=== PATIENT | male | born 1985 | race Caucasian/White ===

== ENCOUNTER 2019-06-19 11:20 | Emergency (ER) | payer BC, SELFPAY ==
[2019-06-19 11:25] VITALS: BP 131/77; PULSE 84; RESP 16; TEMP 36.3; O2SAT 98
--- NOTE | 2019-06-19 11:37 | ED.GENADUL_ITS ---
Discharge Plan Disposition Patient Disposition: HOME Condition: Stable Discharge Details Chief Complaint: RespSymp Clinical Impression: Upper respiratory infection Primary Care Provider: Irina,Local ED Provider: Carmela Lozada Home Meds and New Rx's Prescriptions: New benzonatate 100 mg capsule 100 mg PO BID-TID PRN (Reason: cough) Qty: 14 RF: 0 albuterol sulfate [ProAir HFA] 90 mcg/actuation HFA aerosol inhaler 2 puff IH QID PRN (Reason: shortness of breath or wheezing) Qty: 6.7 RF: 0 prednisone 20 mg tablet 60 mg PO DAILY 5 Days Qty: 15 RF: 0 Continued escitalopram oxalate [Lexapro] 20 mg Tablet 20 mg PO DAILY RF: 0 Discharge Instructions Instructions: Upper Respiratory Infection (ED) Additional Instructions: Follow up with primary care provider in 3-5 days. Return to ED sooner if any worsening or concerns. Increase oral fluids. May take ibuprofen every 4-6 hours as needed for pain. Take medications as directed. Stand Alone Forms: School Release, Work Release Medical Decision Making 1149: 33-year-old male presents with productive cough and intermittent fever. Chest x-ray ordered, and influenza swab. 1230: Spoke with Dr. Regalado radiologist regarding patient's chest x-ray. There is some abnormal right hilar markings and he suggests a chest CT to further evaluate. EXAM: XR CHEST 2V PA LATERAL CLINICAL HISTORY: Productive cough TECHNIQUE: COMPARISON: No exams were available for comparison FINDINGS: Heart is not enlarged. There is slight elevation the diaphragm on the right. No prior films available for comparison. Right hilum is mildly prominent and slightly lobular in appearance comparison with the left. Possibility of a hilar mass or adenopathy not excluded. Lungs appear generally clear. No pleural effusion seen. IMPRESSION: Question right hilar prominence, chest CT should be considered to evaluate the possibility of adenopathy or mass. Ordered By: Carmela Lozada CC: EXAM: CT CHEST PE CTA CLINICAL HISTORY: Productive cough, hemoptysis TECHNIQUE: COMPARISON: No exams were available for comparison FINDINGS: CT angiography of the chest was performed bolus infusion 100 cc of Omnipaque 350. Images obtained through the upper abdomen show unremarkable appearance of visualized portions of liver spleen pancreas adrenals and kidneys. No mediastinal or hilar mass or adenopathy.. Tracheobronchial tree appears intact. . No evidence of pulmonary embolic disease. Thoracic aorta and major branches appear intact. Lungs are clear although hypoinflated. No pleural effusion or pneumothorax. IMPRESSION: Negative CT angiography of the chest. No hilar mass or adenopathy. [id number]: Total DLP = 0.00 mGy-cm Ordered By: Carmela Lozada CC: [id number]: Spoke with Dr. Nieves with radiology regarding CT results. CT result is negative for PE or infiltrate. Will discharge patient with diagnosis of URI. Discussed home care and medications with patient. Placed on care management list for PCP follow-up. HPI General Date/Time Provider Initiated Documentation: 06/19/19 11:31 . Limitations to Documentation: no limitations . Information obtained by: patient . HPI Narrative: 33-year-old male presents with productive cough for the last 2 to 3 days. Also subjective fever T-max 101. Reports productive sputum green-yellow and in the last hour and a half reports some spots of bright red blood. Associated symptoms include sinus pressure, hoarse voice and fatigue. Denies chest pain, nausea vomiting or diarrhea. Related Data Home Medications Medication Instructions Recorded Confirmed albuterol sulfate [ProAir HFA] 2 puff IH QID PRN #6.7 gm 06/19/19 benzonatate 100 mg PO BID-TID PRN #14 cap 06/19/19 escitalopram oxalate [Lexapro] 20 mg PO DAILY 06/19/19 06/19/19 prednisone 60 mg PO DAILY 5 Days #15 tab 06/19/19 Previous Rx's Medication Instructions Recorded albuterol sulfate [ProAir HFA] 2 puff IH QID PRN #6.7 gm 06/19/19 benzonatate 100 mg PO BID-TID PRN #14 cap 06/19/19 prednisone 60 mg PO DAILY 5 Days #15 tab 06/19/19 Allergies Allergy/AdvReac Type Severity Reaction Status Date / Time morphine Allergy Severe Anaphylaxsi Unverified 06/19/19 11:29 s General Stated Complaint: RespSymp SEGUNDO: 3 Review of Systems Narrative: Constitutional: Negative for weight loss, alert and oriented, well groomed, normal body habitus, appears comfortable. HEENT: Denies trauma, headaches, trouble swallowing. POsitive cough, hoarse voice. Chest: Denies chest pain, palpitations, irregular rhythm, hypertension. Respiratory: Denies Shortness of breath. GI: Denies abdominal pain, nausea, vomiting, diarrhea, constipation. : Denies dysuria, hematuria, flank pain, vaginal bleeding, rectal bleeding. Neuro: Denies dizziness, blurry vision, weakness, syncope, headache or facial numbness. Hematologic: Denies easy bruising, intolerance to heat or cold, hair loss. [facility] Social History Smoking/Tobacco Use Status: Current every day Tobacco Type: cigarettes Alcohol Intake: never Substance use type: does not use Exam Const General: cooperative, healthy appearing, comfortable and no acute distress Nutritional Appearance: average body habitus Orientation: alert, awake and oriented x3 HENMT Head: normal to inspection Ears: hearing grossly normal bilaterally and TM's normal bilaterally General nose exam: external nose normal Face and sinus: normal facial exam Mouth: oral mucosae normal, no drooling and no muffled voice Throat: posterior oropharynx normal and uvula midline Neck Neck: normal visual inspection Lymphatic: no lymphadenopathy noted Resp Effort & Inspection: normal respiratory effort, able to speak in complete sentences, no audible wheezes, cough Quality of cough: actively coughing, not labored and no respiratory distress Auscultation: rhonchi left lower Cardio Rate: regular rate Rhythm: regular rhythm Heart Sounds: S1 normal and S2 normal Skin General skin exam: no rashes or lesions noted Course Vital Signs Vital signs: Vital Signs Temperature 36.3 C L 06/19/19 11:25 Pulse 84 06/19/19 11:25 Respiratory Rate 16 06/19/19 11:25 Blood Pressure 131/77 06/19/19 11:25 Pulse Oximetry 98 06/19/19 11:25 Temperature 36.3 C L 06/19/19 11:25 Temperature Source Skin 06/19/19 11:25 Pulse 84 06/19/19 11:25 Respiratory Rate 16 06/19/19 11:25 Respiratory Effort Non-Labored 06/19/19 11:25 Blood Pressure 131/77 06/19/19 11:25 Blood Pressure Position Sitting 06/19/19 11:25 Pulse Oximetry 98 06/19/19 11:25 Oxygen Delivery Method Room Air 06/19/19 11:25 Oxygen Flow Rate 0 06/19/19 11:25 Pain Level 5 06/19/19 11:25
[2019-06-19] MEDS: Ibuprofen 600 MG TAB PO (11:51)
--- NOTE | 2019-06-19 12:19 | DI.RAD_ITS ---
EXAM: XR CHEST 2V PA LATERAL CLINICAL HISTORY: Productive cough TECHNIQUE: COMPARISON: No exams were available for comparison FINDINGS: Heart is not enlarged. There is slight elevation the diaphragm on the right. No prior films availab le for comparison. Right hilum is mildly prominent and slightly lobular in appearance comparison with the left. Possibi lity of a hilar mass or adenopathy not excluded. Lungs appear generally clear. No pleural effusion seen. IMPRESSION: Question right hilar prominence, chest CT should be considered to evaluate the possibility of adenopa thy or mass.
[2019-06-19] MEDS: Omnipaque 350 MG/ML 100 ML BTL IJ (12:48)
[2019-06-19 13:04] LABS: Abs Immature Grans 0.12 k/cumm (0.0-0.09); Absolute Basophil Count 0.02 k/cumm (0.0-0.2); Absolute Eosinophil Count 0.15 k/cumm (0.0-0.7); Absolute Lymphocyte Count 1.34 k/cumm (1.2-3.4); Absolute Monocyte Count 0.68 k/cumm (0.11-0.7); Basophils % 0.3; HCT 42.6 % (40.0-50.0); HGB 14.5 g/dL (13.5-17.5); Immature Grans % 1.6 %; Lymphocytes % 17.8; Mean Corpuscular Hemoglobin 29.4 pg (27.0-33.0); Mean Corpuscular Volume 86.2 fL (80-95); Mean Platelet Volume 11.9 fL (8.0-11.0); Monocytes % 9.1; Neutrophils % 69.2; Platelet Count 209 x1000/uL (130-400); RBC 4.94 m/cumm (4.50-6.00); White Blood Cell Count 7.51 k/cumm (4.4-10.8)
--- NOTE | 2019-06-19 13:05 | DI.CT_ITS ---
EXAM: CT CHEST PE CTA CLINICAL HISTORY: Productive cough, hemoptysis TECHNIQUE: COMPARISON: No exams were available for comparison FINDINGS: CT angiography of the chest was performed bolus infusion 100 cc of Omnipaque 350. Images obtained th rough the upper abdomen show unremarkable appearance of visualized portions of liver spleen pancreas adrenals and kidneys. No mediastinal or hilar mass or adenopathy.. Tracheobronchial tree appears in tact. . No evidence of pulmonary embolic disease. Thoracic aorta and major branches appear intact. Lungs are clear although hypoinflated. No pleural effusion or pneumothorax. IMPRESSION: Negative CT angiography of the chest. No hilar mass or adenopathy.
[2019-06-19 13:20] LABS: ALT 64 U/L (16-63); AST 41 U/L (15-37); Albumin 3.7 g/dL (3.4-5.0); Alkaline Phosphatase 123 U/L (46-116); Anion Gap 9.3 mmol/L (3-11); BUN 13 mg/dL (7-18); Bilirubin, Total 0.3 mg/dL (0.2-1.0); CO2 27.7 mmol/L (21.0-32.0); CREATININE 0.83 mg/dL (0.70-1.30); Chloride 101 mmol/L (98-107); Glucose 155 mg/dL (74-106); Potassium 3.7 mmol/L (3.5-5.1); Sodium 138 mmol/L (136-145); Total Protein 6.7 g/dL (6.4-8.2)
[2019-06-19] MEDS: Benzonatate 100 MG CAP PO (13:27)
[2019-06-19 13:59] VITALS: BP 131/64; PULSE 81; RESP 18; TEMP 36; O2SAT 96
== END 2019-06-19 14:01 | disposition home or self-care (01) ==
PROVIDERS: Emergency Provider Registered Nurse Emergency
DX: R50.9 Fever, unspecified (principal); J06.9 Acute upper respiratory infection, unspecified; R04.2 Hemoptysis; F17.210 Nicotine dependence, cigarettes, uncomplicated
CPT/HCPCS: 36415; 71275; 80053; 87449; 87880; 99285; 71046; 85025; 87081; 99284; J3490